=== PATIENT | male | born 1950 | race Caucasian/White ===

== ENCOUNTER 2016-08-14 10:48 | Day surgery (SDC) | payer OTHER, MEDICARE ==
[~2016-08-14] VITALS: Ht 170.2 cm; Wt 104.3 kg
[~2016-08-14 10:48] MED LIST: ALEVE220 M2 PO; AMLODIPINE BESY10 MG PO; FLOVENT 22120 INHALA IH; HYDROCODON-ACE1 EAC7 PO; LISINOPRIL40 MG PO; LORCET 5-325 M1 EACH PO; METFORMIN HCL1000 MG PO; NEXIUM40 MG PO; NORVASC10 MG PO; ROCEPHIN2 GM/50 ML IV; VENTOLIN HFA18 GM IH; ZESTRIL40 MG PO
[2016-08-14 11:23] VITALS: BP 142/79
[2016-08-14 11:30] LABS: POINT-OF-CARE METER ID UU14174212
[2016-08-14 12:15] LABS: ANION GAP 9 MEQ/L (2-14); CHLORIDE 105 MEQ/L (99-109); GFR ESTIMATE (CALCULATED) 46 mL/min/; GLUCOSE 121 mg/dL (70-99); POTASSIUM 4.5 MEQ/L (3.7-5.4); SAMPLE HEMOLYSIS CHECK 0; SAMPLE ICTERIC CHECK 0; SAMPLE LIPEMIA CHECK 0; SODIUM 140 MEQ/L (136-147); UREA NITROGEN (BUN) 23 mg/dL (9-23)
[2016-08-14 13:58] LABS: POINT-OF-CARE METER ID UU13113675
[2016-08-14 14:25] VITALS: BP 118/70
== END 2016-08-14 15:00 | disposition home or self-care (01) ==
LOC: SDC 10:48
PROVIDERS: Obstetrics & Gynecology; Podiatrist Foot & Ankle Surgery
PROC: 0Y6S0Z0 Detachment at Left 2nd Toe, Complete, Open Approach (ICD-10-PCS; principal; 2016-08-14)
DX: E11.621 Type 2 diabetes mellitus with foot ulcer (principal); E11.42 Type 2 diabetes mellitus with diabetic polyneuropathy; E11.69 Type 2 diabetes mellitus with other specified complication; I11.0 Hypertensive heart disease with heart failure; I50.9 Heart failure, unspecified; M86.172 Other acute osteomyelitis, left ankle and foot; M20.41 Other hammer toe(s) (acquired), right foot; K21.9 Gastro-esophageal reflux disease without esophagitis; R94.31 Abnormal electrocardiogram [ECG] [EKG]; Z79.82 Long term (current) use of aspirin; Z79.01 Long term (current) use of anticoagulants; Z79.84 Long term (current) use of oral hypoglycemic drugs; E66.9 Obesity, unspecified; Z68.39 Body mass index [BMI] 39.0-39.9, adult; F17.210 Nicotine dependence, cigarettes, uncomplicated; J44.9 Chronic obstructive pulmonary disease, unspecified
CPT/HCPCS: 80048; 82948; 87070; 87075; 87205; 88305; 88311; J0131; J2250; J3010; S0020

== ENCOUNTER 2017-05-19 09:25 | Day surgery (SDC) | payer OTHER, MEDICARE ==
[~2017-05-19] VITALS: Ht 167.6 cm; Wt 108.7 kg
[~2017-05-19 09:25] MED LIST changes: +CILOSTAZOL50 MG PO; -METFORMIN HCL1000 MG PO; +METFORMIN HCL500 MG PO; +OXAYDO5 MG PO
[2017-05-19 10:21] VITALS: BP 147/73
[2017-05-19 18:34] VITALS: BP 171/76
[2017-05-19 23:30] VITALS: BP 150/67
[2017-05-20 03:29] VITALS: BP 125/67
[2017-05-20 07:55] VITALS: BP 140/82
[2017-05-20 11:46] VITALS: BP 136/85
[2017-05-20] MEDS ORDERED: LYRICA50 MG PO (13:42)
[2017-05-20] MEDS ORDERED: CEPHALEXIN500 MG PO (13:43)
[2017-05-20] MEDS ORDERED: OXAYDO5 MG PO (13:53)
== END 2017-05-20 15:14 | disposition home or self-care (01) ==
LOC: SDC 09:25 → 3EAST 16:19 → 2SOUTH 16:19 → ENRESERV 16:19 → 3EAST 18:06
PROVIDERS: Podiatrist Foot & Ankle Surgery
PROC: 0Y6M0Z8 Detachment at Right Foot, Complete 5th Ray, Open Approach (ICD-10-PCS; principal; 2017-05-19)
PROC: 0JXQ0ZC Transfer Right Foot Subcutaneous Tissue and Fascia with Skin, Subcutaneous Tissue and Fascia, Open Approach (ICD-10-PCS; principal; 2017-05-19)
DX: E11.621 Type 2 diabetes mellitus with foot ulcer (principal); E11.52 Type 2 diabetes mellitus with diabetic peripheral angiopathy with gangrene; E11.69 Type 2 diabetes mellitus with other specified complication; M86.171 Other acute osteomyelitis, right ankle and foot; E11.65 Type 2 diabetes mellitus with hyperglycemia; E11.42 Type 2 diabetes mellitus with diabetic polyneuropathy; Z88.2 Allergy status to sulfonamides; E78.5 Hyperlipidemia, unspecified; K21.9 Gastro-esophageal reflux disease without esophagitis; J44.9 Chronic obstructive pulmonary disease, unspecified; I50.9 Heart failure, unspecified; E66.9 Obesity, unspecified; Z68.38 Body mass index [BMI] 38.0-38.9, adult; F17.210 Nicotine dependence, cigarettes, uncomplicated; Z79.4 Long term (current) use of insulin
CPT/HCPCS: 71046; 73630; 82948; 87070; 87075; 87076; 87205; 88305; 88311; G0378; J0131; J0690; J1170; J2250; J2405; J3010; S0020

== ENCOUNTER 2017-05-24 09:15 | Emergency (ER) | payer OTHER, MEDICARE ==
[~2017-05-24] VITALS: Ht 167.6 cm; Wt 101.2 kg
[~2017-05-24 09:15] MED LIST changes: +CEPHALEXIN500 MG PO; +LYRICA50 MG PO
[2017-05-24 10:15] LABS: BASOPHIL (%) 0.3 % (0-1); BASOPHIL COUNT 0.1 K/uL (0-0.1); EOSINOPHIL (%) 1.5 % (0-5); EOSINOPHIL COUNT 0.3 K/uL (0-0.3); HEMATOCRIT 37.8 % (38.0-50.0); HEMOGLOBIN 12.9 G/DL (12.5-16.6); IMMATURE GRANULOCYTE (%) 0.8 % (0.0-0.7); LYMPHOCYTE (%) 13.3 % (15-42); LYMPHOCYTE COUNT 2.2 K/uL (1.0-2.8); MCH 28.7 PG (29.0-34.0); MCHC 34.1 G/DL (30.0-36.0); MCV 84.2 FL (86-99); MONOCYTE (%) 5.9 % (3-12); NEUTROPHIL (%) 78.2 % (45-76); NEUTROPHIL COUNT 13.1 K/uL (1.8-6.4); RBC DIS.WIDTH-CV 12.6 % (11.8-14.6); RBC DIS.WIDTH-SD 38.9 % (39-53); RED BLOOD COUNT 4.49 M/uL (4.00-5.50); WHITE BLOOD COUNT 16.8 K/uL (4.1-10.2)
[2017-05-24 10:18] LABS: PLATELET COUNT 346 K/uL (156-360)
[2017-05-24 10:21] LABS: INTER. NORMALIZED RATIO 1.2
[2017-05-24 10:23] LABS: CHLORIDE 99 mEq/L (99-109); SODIUM 135 mEq/L (136-147)
[2017-05-24 10:25] LABS: GLUCOSE 196 mg/dL (70-99)
[2017-05-24 10:29] LABS: GFR ESTIMATE (CALCULATED) 35 mL/min/ (58.99-99999)
[2017-05-24 10:30] LABS: UREA NITROGEN (BUN) 35 mg/dL (9-23)
[2017-05-24 14:29] VITALS: BP 126/72
== END 2017-05-24 14:29 | disposition home or self-care (01) ==
LOC: EME 09:15
PROVIDERS: Emergency Medicine
DX: S09.90XA Unspecified injury of head, initial encounter (principal); S00.93XA Contusion of unspecified part of head, initial encounter; W01.10XA Fall on same level from slipping, tripping and stumbling with subsequent striking against unspecified object, initial encounter; G89.18 Other acute postprocedural pain; M79.671 Pain in right foot; M25.552 Pain in left hip; M25.511 Pain in right shoulder; E11.9 Type 2 diabetes mellitus without complications; I50.9 Heart failure, unspecified; Z79.84 Long term (current) use of oral hypoglycemic drugs; F17.200 Nicotine dependence, unspecified, uncomplicated
CPT/HCPCS: 70450; 73030; 73502; 80048; 85025; 85610; 93005; 99281; 99284; G8978 GP CJ; G8979 GP CI; G8980 CJ; G8987 GO CJ; G8988 CI

== ENCOUNTER 2017-06-05 14:52 | Emergency (ER) | payer OTHER, MEDICARE ==
[~2017-06-05] VITALS: Ht 167.6 cm; Wt 99.6 kg
[2017-06-05 15:43] LABS: BASOPHIL (%) 0.4 % (0-1); BASOPHIL COUNT 0.1 K/uL (0-0.1); EOSINOPHIL (%) 0.7 % (0-5); EOSINOPHIL COUNT 0.2 K/uL (0-0.3); HEMATOCRIT 40.8 % (38.0-50.0); HEMOGLOBIN 13.7 G/DL (12.5-16.6); IMMATURE GRANULOCYTE (%) 0.8 % (0.0-0.7); LYMPHOCYTE (%) 14.5 % (15-42); MCHC 33.6 G/DL (30.0-36.0); MCV 83.4 FL (86-99); MONOCYTE (%) 4.9 % (3-12); NEUTROPHIL (%) 78.7 % (45-76); PLATELET COUNT 428 K/uL (156-360); RBC DIS.WIDTH-CV 12.5 % (11.8-14.6); RBC DIS.WIDTH-SD 37.9 % (39-53); RED BLOOD COUNT 4.89 M/uL (4.00-5.50); WHITE BLOOD COUNT 20.4 K/uL (4.1-10.2)
[2017-06-05 16:05] LABS: ALBUMIN 3.2 G/DL (3.2-4.8); CHLORIDE 98 MEQ/L (99-109); POTASSIUM 4.5 MEQ/L (3.7-5.4); SODIUM 135 MEQ/L (136-147); TOTAL BILIRUBIN 0.9 MG/DL (0.0-1.0)
[2017-06-05 16:11] LABS: ALKALINE PHOSPHATASE 134 IU/L (3-129); ALT (GPT) 24 IU/L (3-49); AST (GOT) 28 IU/L (2-34); CREATININE 1.6 MG/DL (0.6-1.3); GFR ESTIMATE (CALCULATED) 46 mL/min/ (58.99-99999); GLUCOSE 125 mg/dL (70-99); LIPASE 34 U/L (1.0-51.0); TOTAL PROTEIN 7.8 G/DL (6.4-8.3); UREA NITROGEN (BUN) 28 mg/dL (9-23)
[2017-06-05 16:45] LABS: APPEARANCE SL.HAZY ((CLEAR)); BILIRUBIN NEGATIVE; BLOOD SMALL; COLOR AMBER ((YELLOW)); GLUCOSE (STRIP) 50; KETONES 5; LEUKOCYTES NEGATIVE; NITRITE NEGATIVE; PROTEIN (STRIP) 100
[2017-06-05 16:56] LABS: BACTERIA NONE SEEN /HPF; EPITHELIAL CELLS RARE /HPF; MUCUS 2+ /LPF; RED BLOOD CELLS 0-5 /HPF (0-5); UCUL ADDED? NO; WHITE BLOOD CELLS 0-5 /HPF (0-5)
[2017-06-05 17:14] LABS: COARSE GRANULAR CASTS RARE /LPF
[2017-06-05] MEDS ORDERED: ZOFRAN ODT4 MG PO (19:48)
[2017-06-05 21:13] VITALS: BP 131/61
== END 2017-06-05 21:25 | disposition home or self-care (01) ==
LOC: EME 14:52
PROVIDERS: Emergency Medicine
DX: R11.0 Nausea (principal); E11.621 Type 2 diabetes mellitus with foot ulcer; L97.529 Non-pressure chronic ulcer of other part of left foot with unspecified severity; F17.200 Nicotine dependence, unspecified, uncomplicated; Z79.84 Long term (current) use of oral hypoglycemic drugs; Z88.6 Allergy status to analgesic agent
CPT/HCPCS: 80053; 81003; 82010; 83605; 83690; 85025; 87502; 99281; 99285; J7030

== ENCOUNTER 2017-06-07 09:56 | Inpatient (IN) | payer OTHER, MEDICARE ==
[~2017-06-07] VITALS: Ht 167.6 cm; Wt 96.5 kg
[~2017-06-07 09:56] MED LIST changes: +ZOFRAN ODT4 MG PO
[2017-06-07 10:54] LABS: BASOPHIL (%) 0.5 % (0-1); BASOPHIL COUNT 0.1 K/uL (0-0.1); EOSINOPHIL (%) 1.1 % (0-5); EOSINOPHIL COUNT 0.2 K/uL (0-0.3); HEMATOCRIT 38.4 % (38.0-50.0); HEMOGLOBIN 12.9 G/DL (12.5-16.6); IMMATURE GRANULOCYTE (%) 1.1 % (0.0-0.7); LYMPHOCYTE (%) 16.7 % (15-42); LYMPHOCYTE COUNT 2.7 K/uL (1.0-2.8); MCHC 33.6 G/DL (30.0-36.0); MCV 83.3 FL (86-99); MONOCYTE (%) 5.6 % (3-12); MONOCYTE COUNT 0.9 K/uL (0-0.8); PLATELET COUNT 425 K/uL (156-360); RBC DIS.WIDTH-CV 12.6 % (11.8-14.6); RBC DIS.WIDTH-SD 38.2 % (39-53); RED BLOOD COUNT 4.61 M/uL (4.00-5.50); WHITE BLOOD COUNT 15.9 K/uL (4.1-10.2)
[2017-06-07 10:58] LABS: INTER. NORMALIZED RATIO 1.3
[2017-06-07 11:27] LABS: CHLORIDE 96 MEQ/L (99-109); CREATININE 1.7 MG/DL (0.6-1.3); GFR ESTIMATE (CALCULATED) 43 mL/min/ (58.99-99999); GLUCOSE 184 mg/dL (70-99); POTASSIUM 3.9 MEQ/L (3.7-5.4); SODIUM 131 MEQ/L (136-147); UREA NITROGEN (BUN) 21 mg/dL (9-23)
[2017-06-07] MEDS ORDERED: COLACE100 MG PO (13:25)
[2017-06-07] MEDS ORDERED: JANUVIA25 M1 PO (13:26)
[2017-06-07] MEDS ORDERED: LIPITOR40 MG PO (13:26)
[2017-06-07] MEDS ORDERED: LANTUS 3 M100 UNITS1 SC (13:29)
[2017-06-07 13:32] LABS: TROP-I INTERPRETATION NEGATIVE; TROPONIN-I 0.02 ng/mL (0.0-0.30)
[2017-06-07] MEDS ORDERED: BACTROBAN OINTM22 GM TP (13:32)
[2017-06-07 19:15] VITALS: BP 167/70
[2017-06-07 23:57] VITALS: BP 125/58
[2017-06-08 04:34] VITALS: BP 138/65
[2017-06-08 06:04] LABS: HEMATOCRIT 31.4 % (38.0-50.0); MCH 27.9 PG (29.0-34.0); MCHC 33.1 G/DL (30.0-36.0); MCV 84.2 FL (86-99); PLATELET COUNT 372 K/uL (156-360); RBC DIS.WIDTH-CV 12.6 % (11.8-14.6); RBC DIS.WIDTH-SD 38.3 % (39-53); RED BLOOD COUNT 3.73 M/uL (4.00-5.50); WHITE BLOOD COUNT 12.2 K/uL (4.1-10.2)
[2017-06-08 06:05] LABS: HEMOGLOBIN 10.4 G/DL (12.5-16.6)
[2017-06-08 06:11] LABS: CHLORIDE 100 MEQ/L (99-109); CREATININE 1.7 MG/DL (0.6-1.3); GFR ESTIMATE (CALCULATED) 43 mL/min/ (58.99-99999); GLUCOSE 157 mg/dL (70-99); POTASSIUM 3.8 MEQ/L (3.7-5.4); SODIUM 134 MEQ/L (136-147); UREA NITROGEN (BUN) 18 mg/dL (9-23)
[2017-06-08 07:54] VITALS: BP 152/67
[2017-06-08 10:19] LABS: HEMOGLOBIN A1c (GLYCOHEMOGLOB) 7.5 % (Below 5.7)
[2017-06-08 11:31] VITALS: BP 153/70
[2017-06-08 15:48] VITALS: BP 137/65
[2017-06-08 19:42] VITALS: BP 142/67
[2017-06-08 22:59] VITALS: BP 123/59
[2017-06-09 04:05] VITALS: BP 135/63
[2017-06-09 05:38] LABS: HEMATOCRIT 30.8 % (38.0-50.0); HEMOGLOBIN 10.2 G/DL (12.5-16.6); MCH 27.6 PG (29.0-34.0); MCHC 33.1 G/DL (30.0-36.0); MCV 83.2 FL (86-99); PLATELET COUNT 375 K/uL (156-360); RBC DIS.WIDTH-CV 12.5 % (11.8-14.6); RBC DIS.WIDTH-SD 38.2 % (39-53); WHITE BLOOD COUNT 11.6 K/uL (4.1-10.2)
[2017-06-09 06:03] LABS: C-REACTIVE PROTEIN 121.4 MG/L (0-10); CHLORIDE 100 MEQ/L (99-109); CREATININE 1.6 MG/DL (0.6-1.3); GFR ESTIMATE (CALCULATED) 46 mL/min/ (58.99-99999); POTASSIUM 3.7 MEQ/L (3.7-5.4); SODIUM 135 MEQ/L (136-147); UREA NITROGEN (BUN) 14 mg/dL (9-23)
[2017-06-09 06:07] LABS: ERTH.SED.RATE 92 MM/HR (0-20)
[2017-06-09 06:08] LABS: GLUCOSE 105 mg/dL (70-99)
[2017-06-09 07:05] VITALS: BP 161/72
[2017-06-09 13:08] VITALS: BP 168/78
[2017-06-09 15:30] VITALS: BP 175/81
[2017-06-09 19:25] VITALS: BP 146/70
[2017-06-09 23:15] VITALS: BP 142/72
[2017-06-10 04:05] VITALS: BP 157/70
[2017-06-10 05:50] LABS: HEMATOCRIT 30.9 % (38.0-50.0); HEMOGLOBIN 10.3 G/DL (12.5-16.6); MCH 28.1 PG (29.0-34.0); MCHC 33.3 G/DL (30.0-36.0); MCV 84.4 FL (86-99); PLATELET COUNT 352 K/uL (156-360); RBC DIS.WIDTH-CV 12.6 % (11.8-14.6); RBC DIS.WIDTH-SD 38.5 % (39-53); RED BLOOD COUNT 3.66 M/uL (4.00-5.50); WHITE BLOOD COUNT 11.2 K/uL (4.1-10.2)
[2017-06-10 06:09] LABS: CHLORIDE 102 MEQ/L (99-109); CREATININE 1.4 MG/DL (0.6-1.3); GFR ESTIMATE (CALCULATED) 54 mL/min/ (58.99-99999); GLUCOSE 109 mg/dL (70-99); POTASSIUM 3.6 MEQ/L (3.7-5.4); SODIUM 135 MEQ/L (136-147); UREA NITROGEN (BUN) 11 mg/dL (9-23)
[2017-06-10 07:33] VITALS: BP 159/74
[2017-06-10 11:10] VITALS: BP 162/88
[2017-06-10 15:44] VITALS: BP 113/57
[2017-06-10 20:26] VITALS: BP 122/61
[2017-06-10 23:51] VITALS: BP 113/53
[2017-06-11 07:47] VITALS: BP 130/61
[2017-06-11 11:20] LABS: C DIFF TOXIN POSITIVE (NEGATIVE)
[2017-06-11 16:42] VITALS: BP 125/55
[2017-06-12 01:08] VITALS: BP 128/66
[2017-06-12 06:57] LABS: CHLORIDE 100 MEQ/L (99-109); CREATININE 1.5 MG/DL (0.6-1.3); GFR ESTIMATE (CALCULATED) 49 mL/min/ (58.99-99999); GLUCOSE 149 mg/dL (70-99); POTASSIUM 3.7 MEQ/L (3.7-5.4); SODIUM 134 MEQ/L (136-147); UREA NITROGEN (BUN) 11 mg/dL (9-23)
[2017-06-12 08:22] VITALS: BP 136/62
[2017-06-12 16:15] VITALS: BP 131/61
[2017-06-12 23:53] VITALS: BP 125/60
[2017-06-13 08:00] VITALS: BP 122/58
[2017-06-13 12:00] VITALS: BP 122/80
[2017-06-13 16:00] VITALS: BP 122/68
[2017-06-14 00:43] VITALS: BP 122/68
[2017-06-14 08:43] VITALS: BP 147/70
[2017-06-14] MEDS ORDERED: MIRTAZAPINE15 MG PO (10:10)
[2017-06-14] MEDS ORDERED: VANCOCIN HCL125 MG PO (10:13)
[2017-06-14] MEDS ORDERED: AUGMENTIN875 MG PO (10:13)
[2017-06-14] MEDS ORDERED: OXAYDO5 MG PO (10:14)
[2017-06-14] MEDS ORDERED: LEVEMIR FL100 UNIT/1 SC (10:17)
== END 2017-06-14 15:28 | disposition home health service (06) | DRG 854 ==
LOC: EME 09:56 → 4SOUTH 12:10 → EDOF 12:10 → ENRESERV 12:28 → 4SOUTH 17:35
PROVIDERS: Emergency Medicine; Family Medicine; Internal Medicine; Internal Medicine Infectious Disease; Physician Assistant Medical
PROC: 0Y6M0ZD Detachment at Right Foot, Partial 4th Ray, Open Approach (ICD-10-PCS; principal; 2017-06-09)
DX: A41.9 Sepsis, unspecified organism (principal); E11.52 Type 2 diabetes mellitus with diabetic peripheral angiopathy with gangrene; E11.621 Type 2 diabetes mellitus with foot ulcer; L97.519 Non-pressure chronic ulcer of other part of right foot with unspecified severity; E11.628 Type 2 diabetes mellitus with other skin complications; L03.115 Cellulitis of right lower limb; A04.72 Enterocolitis due to Clostridium difficile, not specified as recurrent; I13.0 Hypertensive heart and chronic kidney disease with heart failure and stage 1 through stage 4 chronic kidney disease, or unspecified chronic kidney disease; E11.22 Type 2 diabetes mellitus with diabetic chronic kidney disease; N18.3 Chronic kidney disease, stage 3 (moderate); I50.9 Heart failure, unspecified; E11.42 Type 2 diabetes mellitus with diabetic polyneuropathy; E11.65 Type 2 diabetes mellitus with hyperglycemia; E78.5 Hyperlipidemia, unspecified; E87.2 Acidosis; I95.9 Hypotension, unspecified; G47.00 Insomnia, unspecified; G89.29 Other chronic pain; K21.9 Gastro-esophageal reflux disease without esophagitis; F32.9 Major depressive disorder, single episode, unspecified; Z66 Do not resuscitate; F17.200 Nicotine dependence, unspecified, uncomplicated; E66.9 Obesity, unspecified; Z68.34 Body mass index [BMI] 34.0-34.9, adult; Z82.49 Family history of ischemic heart disease and other diseases of the circulatory system
CPT/HCPCS: 76937; 80048; 80053; 80202; 81003; 82010; 82948; 83036; 83605; 83690; 84484; 85025; 85027; 85610; 85652; 86140; 87040; 87070; 87075; 87076; 87205; 87493; 87502; 87801; 88305; 99281; 99285; C1751; C1894; J0696; J1170; J1644; J1815; J2250; J2270; J2405; J2543; J3370; J7030; J7050; S0020

== ENCOUNTER 2017-06-19 06:10 | Day surgery (SDC) | payer OTHER, MEDICARE ==
[~2017-06-19] VITALS: Ht 167.6 cm; Wt 96.4 kg
[~2017-06-19 06:10] MED LIST changes: +AUGMENTIN875 MG PO; +BACTROBAN OINTM22 GM TP; +COLACE100 MG PO; +JANUVIA25 M1 PO; +LANTUS 3 M100 UNITS1 SC; +LEVEMIR FL100 UNIT/1 SC; +LIPITOR40 MG PO; +MIRTAZAPINE15 MG PO; +VANCOCIN HCL125 MG PO
[2017-06-19 06:37] VITALS: BP 125/68
[2017-06-19 12:04] VITALS: BP 108/58
== END 2017-06-19 12:34 | disposition home or self-care (01) ==
LOC: SDC 06:10 → 2EAST 06:11 → SDC 14:18
PROVIDERS: Surgery
DX: E11.52 Type 2 diabetes mellitus with diabetic peripheral angiopathy with gangrene (principal); F17.200 Nicotine dependence, unspecified, uncomplicated; I13.0 Hypertensive heart and chronic kidney disease with heart failure and stage 1 through stage 4 chronic kidney disease, or unspecified chronic kidney disease; E11.22 Type 2 diabetes mellitus with diabetic chronic kidney disease; I50.9 Heart failure, unspecified; N18.9 Chronic kidney disease, unspecified; J44.9 Chronic obstructive pulmonary disease, unspecified; Z79.4 Long term (current) use of insulin; Z88.6 Allergy status to analgesic agent; Z88.8 Allergy status to other drugs, medicaments and biological substances
CPT/HCPCS: 82948; 87641; 88305; 88311; G0378; J2250; J2405; J3010; J7120; S0020